=== PATIENT | female | born 1970 | race Caucasian/White ===

== ENCOUNTER 2019-02-23 12:00 | Outpatient (CLI) | payer BC ==
[~2019-02-23] VITALS: Ht 162.6 cm; Wt 96.4 kg
[2019-02-23] MEDS ORDERED: VITA-203 PO (12:17)
[2019-02-23] MEDS ORDERED: CETI10TA20 PO (12:17)
[2019-02-23] MEDS ORDERED: FOLI1TAB24 PO (12:17)
[2019-02-23] MEDS ORDERED: CHOL500049 PO (12:17)
[2019-02-23] MEDS ORDERED: METF-397 PO (12:17)
[2019-02-23] MEDS ORDERED: ESTR0.5T PO (12:17)
[2019-02-23] MEDS ORDERED: METH2.5T PO (12:17)
== END 2019-02-23 12:18 | disposition home or self-care (01) ==
LOC: PREOP 12:00
PROVIDERS: ATTEND Surgery
DX: Z01.818 Encounter for other preprocedural examination (principal)

== ENCOUNTER → 2019-03-20 | Outpatient (CLI) | payer BC ==
[~2019-03-20] MED LIST: CETI10TA20 PO; CHOL500049 PO; ESTR0.5T PO; FOLI1TAB24 PO; METF-397 PO; METH2.5T PO; VITA-203 PO
--- NOTE | 2019-03-20 11:29 | Diagnostic Imaging Report ---
INDICATION: Dysphagia. TECHNIQUE: The study was performed in conjunction with Speech Pathology. Video fluoroscopy was performed during the swallowing of barium with multiple consistencies. The patient ingested thin liquid as well as applesauce and mechanical soft consistency. The patient also ingested meat and cracker consistency. A total of 1 minute 6 seconds of fluoroscopic time was utilized. FINDINGS: The oral phase is unremarkable. There is normal epiglottic tilt and laryngeal elevation. No laryngeal penetration or aspiration was observed. There is mild vallecular residue noted with multiple consistencies. This did clear with repeated swallows. IMPRESSION: Essentially unremarkable modified barium swallow. Dictated by: Dictated on workstation # [id number]
== END ==
LOC: RAD 10:07
PROVIDERS: ATTEND Surgery
DX: R13.10 Dysphagia, unspecified (principal)
CPT/HCPCS: 74230

== ENCOUNTER → 2019-04-05 | Outpatient (CLI) | payer OTHER, BC ==
--- NOTE | 2019-04-05 12:18 | Diagnostic Imaging Report ---
CLINICAL INDICATION: Patient states her accidentally closed SUV griffin door on her head two days ago with no loss of consciousness. Patient has continued headache and intermittent dizziness and nausea. EXAM: Axial CT scan of the brain without IV contrast. Auto Exposure Controls were utilized during the CT exam to meet ALARA standards for radiation dose reduction. COMPARISON: None. FINDINGS: There is no evidence of acute cerebral infarct, intracranial hemorrhage, or gross mass effect. The brain parenchymal volume appears appropriate for patient's age. There is normal villalba-white matter distinction. There is no significant midline shift or herniation. There is no evidence of hydrocephalus. The basal cisterns are unremarkable. The skull, extracranial soft tissue, and orbits are unremarkable. The paranasal sinuses are unremarkable. Temporal bones show no significant abnormality. IMPRESSION: Unremarkable CT scan of the brain. Dictated by: Dictated on workstation # [id number]
== END ==
LOC: RAD FS 11:48
PROVIDERS: ATTEND Nurse Practitioner
DX: S09.90XA Unspecified injury of head, initial encounter (principal); R51 Headache; R11.0 Nausea; R42 Dizziness and giddiness; W22.8XXA Striking against or struck by other objects, initial encounter
CPT/HCPCS: 70450

== ENCOUNTER → 2019-08-17 | Outpatient (CLI) | payer BC ==
[~2019-08-17] MED LIST changes: -CETI10TA20 PO; +CETI10TA21 PO
[2019-08-17 09:37] LABS: CHLORIDE 103 MMOL/L (98-107); SODIUM 139 MMOL/L (135-145)
[2019-08-17 09:38] LABS: ALANINE AMINOTRANSFERASE 119 U/L (0-55); ALBUMIN 3.8 GM/DL (3.2-4.5); ALKALINE PHOSPHATASE 74 U/L (40-136); BILIRUBIN,TOTAL 0.6 MG/DL (0.1-1.0); BUN/CREATININE RATIO 19; CARBON DIOXIDE 19 MMOL/L (21-32); CREATININE SERUM 0.64 MG/DL (0.60-1.30); GFR ESTIMATED > 60; GLUCOSE 205 MG/DL (70-105); TOTAL PROTEIN 6.9 GM/DL (6.4-8.2)
[2019-08-17 15:46] LABS: CHOLESTEROL 282 MG/DL (< 200); HDL CHOLESTEROL 39 MG/DL (40-60); TRIGLYCERIDES 516 MG/DL (<150); VLDL CHOLESTEROL 103 MG/DL (5-40)
== END ==
LOC: LAB FS 07:59
PROVIDERS: ATTEND Family Medicine
DX: Z00.00 Encounter for general adult medical examination without abnormal findings (principal)
CPT/HCPCS: 36415; 80053; 80061

== ENCOUNTER → 2019-08-17 | Outpatient (CLI) | payer BC ==
[2019-08-18 15:13] LABS: FREE T4 (FREE THYROXINE) 0.93 NG/DL (0.70-1.48)
== END ==
LOC: LAB FS 15:54
PROVIDERS: ATTEND Family Medicine
DX: E11.9 Type 2 diabetes mellitus without complications (principal); R63.5 Abnormal weight gain
CPT/HCPCS: 36415; 83036; 84439; 84443

== ENCOUNTER → 2020-02-27 | Outpatient (CLI) | payer BC ==
[~2020-02-27] MED LIST changes: -CETI10TA21 PO; +CETI10TA49 PO
[2020-02-27 10:38] LABS: WHITE BLOOD COUNT 6.7 10^3/uL (4.3-11.0)
[2020-02-27 10:39] LABS: MEAN PLATELET VOLUME 11.4 FL (7.4-10.4)
[2020-02-27 10:56] LABS: CARBON DIOXIDE 20 MMOL/L (21-32); CHLORIDE 102 MMOL/L (98-107); POTASSIUM 4.4 MMOL/L (3.6-5.0); SODIUM 136 MMOL/L (135-145)
[2020-02-27 10:57] LABS: ALANINE AMINOTRANSFERASE 44 U/L (0-55); ALBUMIN 4.3 GM/DL (3.2-4.5); ALKALINE PHOSPHATASE 103 U/L (40-136); BILIRUBIN,TOTAL 0.6 MG/DL (0.1-1.0); BUN/CREATININE RATIO 19; CALCIUM 10.2 MG/DL (8.5-10.1); CREATININE SERUM 0.67 MG/DL (0.60-1.30); GFR ESTIMATED > 60; GLUCOSE 244 MG/DL (70-105); TOTAL PROTEIN 7.5 GM/DL (6.4-8.2)
[2020-02-27 14:49] LABS: CHOLESTEROL 336 MG/DL (< 200); HDL CHOLESTEROL 38 MG/DL (40-60); TRIGLYCERIDES 756 MG/DL (<150)
== END ==
LOC: LAB FS 09:54
PROVIDERS: ATTEND Family Medicine
DX: E11.9 Type 2 diabetes mellitus without complications (principal); R53.82 Chronic fatigue, unspecified
CPT/HCPCS: 36415; 80053; 80061; 82043; 82607; 83036; 84443; 85027

== ENCOUNTER → 2020-08-22 | Outpatient (CLI) | payer BC ==
[~2020-08-22] MED LIST changes: -FOLI1TAB24 PO; +FOLI1TAB33 PO
[2020-08-22 11:41] LABS: ALANINE AMINOTRANSFERASE 22 U/L (0-55); ALKALINE PHOSPHATASE 103 U/L (40-136); BILIRUBIN,TOTAL 0.6 MG/DL (0.1-1.0); BUN/CREATININE RATIO 12; CARBON DIOXIDE 22 MMOL/L (21-32); CHLORIDE 107 MMOL/L (98-107); CREATININE SERUM 0.94 MG/DL (0.60-1.30); GFR ESTIMATED > 60; GLUCOSE 139 MG/DL (70-105); POTASSIUM 4.5 MMOL/L (3.6-5.0); SODIUM 141 MMOL/L (135-145); TOTAL PROTEIN 7.5 GM/DL (6.4-8.2)
[2020-08-22 11:42] LABS: ALBUMIN 4.5 GM/DL (3.2-4.5)
[2020-08-22 15:20] LABS: CHOLESTEROL 278 MG/DL (< 200); HDL CHOLESTEROL 41 MG/DL (40-60); TRIGLYCERIDES 285 MG/DL (<150); VLDL CHOLESTEROL 57 MG/DL (5-40)
== END ==
LOC: LAB FS 10:21
PROVIDERS: ATTEND Family Medicine
DX: E11.9 Type 2 diabetes mellitus without complications (principal)
CPT/HCPCS: 36415; 80053; 80061; 83036

== ENCOUNTER → 2021-02-27 | Outpatient (CLI) | payer BC ==
[2021-02-27 11:33] LABS: CALCIUM 9.7 MG/DL (8.5-10.1); CREATININE SERUM 0.92 MG/DL (0.60-1.30)
[2021-02-27 11:34] LABS: ALBUMIN 4.5 GM/DL (3.2-4.5); BILIRUBIN,TOTAL 0.3 MG/DL (0.1-1.0); TOTAL PROTEIN 7.6 GM/DL (6.4-8.2)
== END ==
LOC: LAB FS 09:58
PROVIDERS: ATTEND Family Medicine
DX: E11.9 Type 2 diabetes mellitus without complications (principal)
CPT/HCPCS: 36415; 80053; 80061; 82043; 83036

== ENCOUNTER → 2021-08-22 | Outpatient (CLI) | payer BC ==
[2021-08-22 13:44] LABS: ALANINE AMINOTRANSFERASE 14 U/L (0-55); ALBUMIN 4.7 GM/DL (3.2-4.5); ALKALINE PHOSPHATASE 71 U/L (40-136); BILIRUBIN,TOTAL 0.3 MG/DL (0.1-1.0); BUN/CREATININE RATIO 13; CALCIUM 10.3 MG/DL (8.5-10.1); CARBON DIOXIDE 24 MMOL/L (21-32); CHLORIDE 109 MMOL/L (98-107); CREATININE SERUM 0.83 MG/DL (0.60-1.30); GFR ESTIMATED 85; GLUCOSE 83 MG/DL (70-105); POTASSIUM 4.2 MMOL/L (3.6-5.0); SODIUM 144 MMOL/L (135-145); TOTAL PROTEIN 7.6 GM/DL (6.4-8.2)
[2021-08-23 12:20] LABS: CHOLESTEROL 264 MG/DL (< 200); HDL CHOLESTEROL 46 MG/DL (40-60); TRIGLYCERIDES 203 MG/DL (<150); VLDL CHOLESTEROL 41 MG/DL (5-40)
== END ==
LOC: LAB FS 13:03
PROVIDERS: ATTEND Family Medicine
DX: E78.5 Hyperlipidemia, unspecified (principal); I10 Essential (primary) hypertension
CPT/HCPCS: 36415; 80053; 80061; 83036